=== PATIENT | male | born 1990 | race Caucasian/White ===

== ENCOUNTER 2019-03-08 15:59 | Emergency (ER) | payer SELFPAY ==
[2019-03-08] MEDS ORDERED: Sodium Chloride 0.9% 1000 ML 1,000 ML IV STA ×3 (16:26→19:34)
--- NOTE | 2019-03-08 16:30 | ERPHSYRPT ---
- History of Present Illness Source: patient Patient Subjective Stated Complaint: suffering from heat exhaustion was at [employer] states he rode his bike from [facility] to [place] Triage Nursing Assessment: pt is alert and oriented x3, he is sweating and face is burnt and flushed , skin warm dry and intact, patietn has trench foot/ cellultis buialteral lower extremities Timing/Duration: today Severity: moderate Associated Symptoms: malaise, No nausea, No vomiting, No abdominal pain, No shortness of breath, No heartburn, No diaphoresis, No cough, No chest pain, No fever, No headaches, No loss of appetite, No syncope, No seizure, No weakness Hx Tetanus, Diphtheria Vaccination/Date Given: Yes Hx Influenza Vaccination/Date Given: No Hx Pneumococcal Vaccination/Date Given: No Immunizations Up to Date: Yes - History of Present Illness Time Seen by Provider: 03/08/19 16:24 Physician History: 28-year-old white male brought for possible heat exhaustion. Patient with sunburn he apparently has [place] Past medical history includes diabetes (STACEY URBINA) Allergies/Adverse Reactions: No Known Drug Allergies Allergy (Unverified 03/08/19 16:09) - Review of Systems Constitutional: Malaise, No Fever, No Chills Eyes: No Symptoms Ears, Nose, & Throat: No Symptoms Respiratory: No Cough, No Dyspnea Cardiac: No Chest Pain, No Edema, No Syncope Abdominal/Gastrointestinal: No Abdominal Pain, No Nausea, No Vomiting, No Diarrhea Genitourinary Symptoms: No Dysuria Musculoskeletal: Myalgias, No Arthralgias, No Back Pain, No Neck Pain, No Deformity, No Fall, No Injury, No Joint Redness, No Joint Pain, No Joint Swelling Skin: No Rash Neurological: No Dizziness, No Focal Weakness, No Sensory Changes Psychological: No Symptoms Endocrine: No Symptoms All Other Systems: Reviewed and Negative - Past Medical History Pertinent Past Medical History: Yes Endocrine Medical History: Diabetes Type I History: Renal Disease - Past Surgical History Past Surgical History: No - Social History Smoking Status: Current every day smoker Drug Use: methamphetamines - Physical Exam General Appearance: mild distress, other (patient with sunburn first degree head ) Eye Exam: PERRL/EOMI, eyes nml inspection Ears, Nose, Throat Exam: normal ENT inspection, TMs normal, pharynx normal, moist mucous membranes Neck Exam: normal inspection, non-tender, supple, full range of motion Respiratory Exam: normal breath sounds, lungs clear, No respiratory distress Cardiovascular Exam: regular rate/rhythm, normal heart sounds, normal peripheral pulses, capillary refill <2 sec Gastrointestinal/Abdomen Exam: soft, normal bowel sounds, No tenderness, No mass Back Exam: normal inspection, normal range of motion, No CVA tenderness, No vertebral tenderness Extremity Exam: normal inspection, normal range of motion, pelvis stable Neurologic Exam: alert, oriented x 3, cooperative, cattle brander II-XII nml as tested, normal mood/affect, nml cerebellar function, nml station & gait, sensation nml, No motor deficits Skin Exam: normal color, warm, dry, other (patient's feet with large amount of dry skin somewhat erythematous.), No rash Lymphatic Exam: No adenopathy SpO2 Interpretation: normal (97%) SpO2: 97 - Nursing Vital Signs Nursing Vital Signs: Initial Vital Signs Temperature 97.9 F 03/08/19 16:01 Pulse Rate 101 H 03/08/19 16:01 Respiratory Rate 20 03/08/19 16:01 Blood Pressure 129/86 03/08/19 16:01 O2 Sat by Pulse Oximetry 97 03/08/19 16:01 Pain Scale Pain Intensity 0 Ordered Tests: Active Orders 24 hr Category Date Time Status EKG-ER Only STAT Care 03/08/19 16:26 Active IV Insertion STAT Care 03/08/19 16:26 Active ACETAMINOPHEN Stat Lab 03/08/19 16:39 Completed CBC W DIFF Stat Lab 03/08/19 16:39 Completed CK-Creatinine Phosphokinase Stat Lab 03/08/19 16:39 Completed CMP Stat Lab 03/08/19 16:39 Completed ETHYL ALCOHOL Stat Lab 03/08/19 16:39 Completed SALICYLATE Stat Lab 03/08/19 16:39 Completed UA W/RFX UR CULTURE Stat Lab 03/08/19 17:11 Completed Urine Triage Profile Stat Lab 03/08/19 17:11 Completed Medication Summary Generic Name Dose Route Start Last Admin Trade Name Freq PRN Reason Stop Dose Admin Sodium Chloride 1,000 mls @ 999 mls/hr 03/08/19 19:34 Sodium Chloride 0.9% 1000 Ml IV 03/08/19 20:34 .Q1H1M STA Discontinued Medications Generic Name Dose Route Start Last Admin Trade Name Lucy PRN Reason Stop Dose Admin Sodium Chloride 1,000 mls @ 999 mls/hr 03/08/19 16:26 03/08/19 17:43 Sodium Chloride 0.9% 1000 Ml IV 03/08/19 17:26 Infused .Q1H1M STA Infusion Sodium Chloride Confirm 03/08/19 16:37 Sodium Chloride 0.9% 1000 Ml Administered 03/08/19 16:38 Dose 1,000 mls @ ud .ROUTE .STK-MED ONE Sodium Chloride 1,000 mls @ 999 mls/hr 03/08/19 17:09 03/08/19 19:11 Sodium Chloride 0.9% 1000 Ml IV 03/08/19 18:09 Infused .Q1H1M STA Infusion Sodium Chloride Confirm 03/08/19 18:01 Sodium Chloride 0.9% 1000 Ml Administered 03/08/19 18:02 Dose 1,000 mls @ ud .ROUTE .STK-MED ONE Sodium Chloride Confirm 03/08/19 19:45 Sodium Chloride 0.9% 1000 Ml Administered 03/08/19 19:46 Dose 1,000 mls @ ud .ROUTE .STK-MED ONE Lab/Rad Data: Laboratory Result Diagrams 03/08/19 16:39 03/08/19 16:39 Laboratory Results 03/08/19 03/08/19 03/08/19 Range/Units 17:11 17:11 16:39 WBC (4.0-10.5) K/mm3 RBC (4.1-5.6) M/mm3 Hgb (12.5-18.0) gm/dl Hct (42-50) % MCV (78-100) fl MCH (26-32) pg MCHC (32-36) g/dl RDW (11.5-14.0) % Plt Count (150-450) K/mm3 MPV (6-9.5) fl Gran % (36.0-66.0) % Eos # (Auto) (0-0.5) Absolute Lymphs (auto) (1.0-4.6) Absolute Monos (auto) (0.0-1.3) Lymphocytes % (24.0-44.0) % Monocytes % (0.0-12.0) % Eosinophils % (0.00-5.0) % Basophils % (0.0-0.4) % Absolute Granulocytes (1.4-6.9) Basophils # (0-0.4) Sodium (137-145) mmol/L Potassium (3.5-5.1) mmol/L Chloride (98-107) mmol/L Carbon Dioxide (22-30) mmol/L Anion Gap (5-15) MEQ/L BUN (9-20) mg/dL Creatinine (0.66-1.25) mg/dL Estimated GFR ML/MIN Glucose (74-106) mg/dL Calcium (8.4-10.2) mg/dL Total Bilirubin (0.2-1.3) mg/dL AST (17-59) U/L ALT (0-50) U/L Alkaline Phosphatase (38-126) U/L Creatine Kinase 389 H (55-170) U/L Serum Total Protein (6.3-8.2) g/dL Albumin (3.5-5.0) g/dL Urine Color YELLOW (YELLOW) Urine Appearance SLIGHTLY CLOUDY (CLEAR) Urine pH 6.0 (5-6) Ur Specific [place] 1.008 (1.005-1.025) Urine Protein NEGATIVE (Negative) Urine Ketones TRACE (NEGATIVE) Urine Blood NEGATIVE (0-5) Alton/ul Urine Nitrite NEGATIVE (NEGATIVE) Urine Bilirubin NEGATIVE (NEGATIVE) Urine Urobilinogen NEGATIVE (0-1) mg/dL Ur Leukocyte Esterase NEGATIVE (NEGATIVE) Urine WBC (Auto) 0-2 (0-5) /HPF Urine RBC (Auto) NONE (0-2) /HPF U Hyaline Cast (Auto) 26-50 (0-2) /LPF U Epithel Cells (Auto) NONE (FEW) /HPF Urine Bacteria (Auto) RARE (NEGATIVE) /HPF Urine Mucus (Auto) SLIGHT (NEGATIVE) /HPF Urine Culture Reflexed NO (NO) Urine Glucose NEGATIVE (NEGATIVE) mg/dL Salicylates < 1.0 L (2-20) mg/dL Urine Opiates Level NEGATIVE (NEGATIVE) Ur Methadone NEGATIVE (NEGATIVE) Acetaminophen < 10 L (10-30) ug/ml Urine Barbiturates NEGATIVE (NEGATIVE) Ur Phencyclidine (PCP) NEGATIVE (NEGATIVE) Urine Amphetamine POSITIVE (NEGATIVE) U Benzodiazepine Level NEGATIVE (NEGATIVE) Urine Cocaine NEGATIVE (NEGATIVE) Urine Marijuana (THC) NEGATIVE (NEGATIVE) Ethyl Alcohol < 10 (0-10) mg/dL 03/08/19 03/08/19 Range/Units 16:39 16:39 WBC 15.9 H (4.0-10.5) K/mm3 RBC 5.41 (4.1-5.6) M/mm3 Hgb 16.4 (12.5-18.0) gm/dl Hct 47.8 (42-50) % MCV 88.4 (78-100) fl MCH 30.3 (26-32) pg MCHC 34.3 (32-36) g/dl RDW 13.4 (11.5-14.0) % Plt Count 260 (150-450) K/mm3 MPV 10.0 H (6-9.5) fl Gran % 69.1 H (36.0-66.0) % Eos # (Auto) 0.05 (0-0.5) Absolute Lymphs (auto) 3.53 (1.0-4.6) Absolute Monos (auto) 1.27 (0.0-1.3) Lymphocytes % 22.3 L (24.0-44.0) % Monocytes % 8.0 (0.0-12.0) % Eosinophils % 0.3 (0.00-5.0) % Basophils % 0.3 (0.0-0.4) % Absolute Granulocytes 10.96 H (1.4-6.9) Basophils # 0.04 (0-0.4) Sodium 141 (137-145) mmol/L Potassium 4.3 (3.5-5.1) mmol/L Chloride 100 (98-107) mmol/L Carbon Dioxide 22 (22-30) mmol/L Anion Gap 23.3 H (5-15) MEQ/L BUN 27 H (9-20) mg/dL Creatinine 2.14 H (0.66-1.25) mg/dL Estimated GFR 39.9 ML/MIN Glucose 82 (74-106) mg/dL Calcium 11.1 H (8.4-10.2) mg/dL Total Bilirubin 0.90 (0.2-1.3) mg/dL AST 92 H (17-59) U/L ALT 183 H (0-50) U/L Alkaline Phosphatase 59 (38-126) U/L Creatine Kinase (55-170) U/L Serum Total Protein 8.9 H (6.3-8.2) g/dL Albumin 5.2 H (3.5-5.0) g/dL Urine Color (YELLOW) Urine Appearance (CLEAR) Urine pH (5-6) Ur Specific [place] (1.005-1.025) Urine Protein (Negative) Urine Ketones (NEGATIVE) Urine Blood (0-5) Alton/ul Urine Nitrite (NEGATIVE) Urine Bilirubin (NEGATIVE) Urine Urobilinogen (0-1) mg/dL Ur Leukocyte Esterase (NEGATIVE) Urine WBC (Auto) (0-5) /HPF Urine RBC (Auto) (0-2) /HPF U Hyaline Cast (Auto) (0-2) /LPF U Epithel Cells (Auto) (FEW) /HPF Urine Bacteria (Auto) (NEGATIVE) /HPF Urine Mucus (Auto) (NEGATIVE) /HPF Urine Culture Reflexed (NO) Urine Glucose (NEGATIVE) mg/dL Salicylates (2-20) mg/dL Urine Opiates Level (NEGATIVE) Ur Methadone (NEGATIVE) Acetaminophen (10-30) ug/ml Urine Barbiturates (NEGATIVE) Ur Phencyclidine (PCP) (NEGATIVE) Urine Amphetamine (NEGATIVE) U Benzodiazepine Level (NEGATIVE) Urine Cocaine (NEGATIVE) Urine Marijuana (THC) (NEGATIVE) Ethyl Alcohol (0-10) mg/dL - Progress Progress: improved - Progress Progress Note: 03/08/19 18:33 Patient appears to be stable. Vitals are stable Urine drug screen positive for amphetamines Chemistry sodium 141 potassium 4.3 chloride 100 bicarbonate 22 BUN 27 creatinine 2.14 glucose 82 total bilirubin 0.9 AST 92 SGPT 183 anion gap 23 CBC white blood cell 15.9 hemoglobin 16.4 hematocrit 47.8 CPK is mildly elevated at 389 acetaminophen level less than 10 salicylate level less than 1.0 alcohol less than 10 Urine specific gravity 1.008 pH 6.0 trace for ketones Will discharge patient Impression heat exhaustion Patient was given 2 L of normal saline (STACEY URBINA) 03/08/19 19:48 pt is feeling better. because of admission labs and because he has to ride his bike for transportation, will provide pt with a 3rd liter ns. pt states that would be great and he is ready to be discharged. (BIJAN SIMMONS) - Departure Departure Disposition: Home Critical Care Time: No - Departure Clinical Impression: Heat exhaustion Qualifiers: Encounter type: initial encounter Qualified Code(s): T67.5XXA - Heat exhaustion , unspecified, initial encounter Condition: Stable Referrals: DOCTOR,NO FAMILY [Primary Care Provider] - Instructions: Heat Exhaustion and Heat Stroke (DC) Additional Instructions: Try to stay out of the sun. Plenty of fluids. Followup with your family (list) or return if problems. Return for acute distress or for severe symptoms. keep your feet dry frequent change of socks.
[2019-03-08] MEDS ORDERED: Sodium Chloride 0.9% 1000 ML 1,000 ML ONE ×3 (16:37→19:45)
[2019-03-08 16:42] LABS: BASOPHIL % 0.3 % (0.0-0.4); Basophil (Absolute #) 0.04 (0-0.4); Eosinophil % 0.3 % (0.00-5.0); Eosinophil (Absolute #) 0.05 (0-0.5); Granulocyte Absolute (ANC) 10.96 (1.4-6.9); Granulocytes % 69.1 % (36.0-66.0); Hematocrit 47.8 % (42-50); Hemoglobin 16.4 gm/dl (12.5-18.0); Lymphocyte (Absolute #) 3.53 (1.0-4.6); Lymphocytes % 22.3 % (24.0-44.0); Mean Cell Volume 88.4 fl (78-100); Mean Corpuscular Hemoglobin 30.3 pg (26-32); Mean Corpuscular Hgb Concent. 34.3 g/dl (32-36); Monocyte (Absolute #) 1.27 (0.0-1.3); Platelet Count 260 K/mm3 (150-450); Red Blood Count 5.41 M/mm3 (4.1-5.6); Red Cell Distribution Width 13.4 % (11.5-14.0); White Blood Count 15.9 K/mm3 (4.0-10.5)
[2019-03-08 16:54] LABS: ALBUMIN 5.2 g/dL (3.5-5.0); ANION GAP 23.3 MEQ/L (5-15); BILIRUBIN,TOTAL 0.9 mg/dL (0.2-1.3); Calcium 11.1 mg/dL (8.4-10.2); Creatinine 1 2.14 mg/dL (0.66-1.25); Potassium 4.3 mmol/L (3.5-5.1); Total Protein 8.9 g/dL (6.3-8.2)
[2019-03-08 17:04] LABS: CK-Creatinine Phosphokinase 389 U/L (55-170)
[2019-03-08 17:05] LABS: ACETAMINOPHEN < 10 ug/ml (10-30); ETHYL ALCOHOL < 10 mg/dL (0-10); SALICYLATE < 1.0 mg/dL (2-20)
[2019-03-08 17:23] LABS: Appearance SLIGHTLY CLOUDY (CLEAR); Bacteria RARE /HPF (NEGATIVE); Bilirubin NEGATIVE (NEGATIVE); Blood NEGATIVE Ery/ul (0-5); Glucose NEGATIVE (NEGATIVE); Hyaline Casts 26-50 /LPF (0-2); Ketones TRACE (NEGATIVE); Leukocyte Esterase NEGATIVE (NEGATIVE); Mucus SLIGHT /HPF (NEGATIVE); Nitrite NEGATIVE (NEGATIVE); Protein,Urine Dip NEGATIVE (Negative); Specific Gravity 1.008 (1.005-1.025); Urobilinogen NEGATIVE mg/dL (0-1); WBC 0-2 /HPF (0-5)
[2019-03-08 17:36] LABS: Barbiturate,Urine NEGATIVE (NEGATIVE); Benzodiazepine,Urine NEGATIVE (NEGATIVE); Cocaine,Urine NEGATIVE (NEGATIVE); Methadone,Urine NEGATIVE (NEGATIVE); Opiate,Urine NEGATIVE (NEGATIVE); PCP,Urine NEGATIVE (NEGATIVE); THC,Urine NEGATIVE (NEGATIVE)
[2019-03-08 18:30] LABS: Amphetamine,Urine POSITIVE (NEGATIVE)
[2019-03-08 21:12] VITALS: BP 128/79; PULSE 89; O2SAT 97
== END 2019-03-08 21:12 | disposition home or self-care (01) ==
LOC: ED 15:59
DX: T67.5XXA Heat exhaustion, unspecified, initial encounter (principal); E10.9 Type 1 diabetes mellitus without complications; N28.9 Disorder of kidney and ureter, unspecified; T69.022A Immersion foot, left foot, initial encounter; T69.021A Immersion foot, right foot, initial encounter; L03.116 Cellulitis of left lower limb; L03.115 Cellulitis of right lower limb; Z79.899 Other long term (current) drug therapy
CPT/HCPCS: 36415; 80053; 80307; 81001; 82550; 85025; 93005; 96360; 96361; 99284; G0481; G0480